=== PATIENT | male | born 1950 | race Caucasian/White ===

== ENCOUNTER 2017-02-28 15:11 | Outpatient (CLI) | payer OTHER | END 2017-02-28 15:12 | LOC: LAB 15:11 | PROVIDERS: ATTEND Family Medicine | DX: E78.00 Pure hypercholesterolemia, unspecified (principal); Z00.00 Encounter for general adult medical examination without abnormal findings; E29.1 Testicular hypofunction | CPT/HCPCS: 36415; 80061; 84402 ==

== ENCOUNTER 2017-03-21 07:04 | Day surgery (SDC) | payer OTHER ==
[2017-03-21] MEDS ORDERED: SALINE FLUSH 10 ML DISP.SYRIN IVF ONE (08:00)
[2017-03-21] MEDS ORDERED: PROPOFOL 500 MG/50 ML VIAL IV ONE (08:00)
[2017-03-21] MEDS ORDERED: LACTATED RINGERS 1,000 ML IV.SOLN IV ONE (08:00)
[2017-03-21] MEDS ORDERED: LIDOCAINE HCL/PF 2% 100 MG/5 ML VIAL IJ ONE (08:00)
--- NOTE | 2017-03-21 11:06 | GI Report ---
REFERRING PHYSICIAN: Dr. Giovanni Rosario [employer] DEPARTMENT MANAGER: Ethan Stevens MD PROCEDURE MEDICATION: Propofol as per anesthesia. INDICATIONS: Patient is a 66-year-old man who had a colonoscopy 11 years ago. He is referred for a screening. He denies any changes in his stools or blood in his stools. PROCEDURE PERFORMED: Colonoscopy. PROCEDURE: An Olympus video colonoscope was advanced to the rectum and slowly advanced to the cecum. The appendiceal orifice and ileocecal valve looked normal. On slow withdrawal, the cecum, ascending colon, and transverse colon with some redundancy but no obvious intraluminal lesions noted. The descending colon and sigmoid colon, again, redundancy, but no obvious intraluminal lesions noted. Retroflexion of the rectum was normal. Patient tolerated the procedure well. FINDINGS: Normal colon mucosa to the cecum. RECOMMENDATIONS: 1. Continue high-fiber diet. 2. Consider re-looking at his colon again in 10 years, sooner if clinically indicated. 3. Follow up with Dr. Rosario. cc: Dr. Giovanni LION
== END 2017-03-21 07:05 ==
LOC: OPSURG 07:04
PROVIDERS: ATTEND Internal Medicine Gastroenterology
DX: Z12.11 Encounter for screening for malignant neoplasm of colon (principal)
CPT/HCPCS: J2001; J2704; J7120; G0121; S1016